=== PATIENT | female | born 1960 | race Two or more races ===

== ENCOUNTER 2025-05-15 10:10 | Emergency (ER) | payer OTHER ==
[~2025-05-15] VITALS: Ht 160 cm; Wt 56.8 kg
--- NOTE | 2025-05-15 10:30 | ED.PDOC ---
HPI Comments 64 y/o F, BIBA, with PMhx of HTN presents to the ED for CC of palpitations. EMS reports, patient is coming from dental office where she received local anesthetic Epinephrin and began to have an adverse reaction. Upon arrival to scene, patient was found to be hyperventilating c/o shortness of breath and palpitations. Patient reports, to have similar symptoms in September 2025, while also receiving dental work then using Lidocaine. Patient denies chest pain, difficulty swallowing, rash, nausea, or vomiting. No other associated symptoms, modifiers, recent injuries or sick contacts present at this time. Time Seen by MD: 10:10 Reviewed Notes: Nurses Notes, Christmas Bell Ringer Notes, Medications, Allergies Allergies: Coded Allergies: Lidocaine (Verified Allergy, Severe, 05/15/25) Information Source: Patient, Emergency Med Personnel Mode of Arrival: EMS Severity: Moderate Timing: Minutes Duration: Since onset Prehospital treatment: None Cardiac Risk Factors: HTN PE Risk Factors: None History of: Similar pain in past Modifying Factors: Nothing Associated Signs and Symptoms: Palpitations Past Medical History PAST MEDICAL HISTORY: HTN Surgical History: Unknown FIELD APPLICATIONS SPECIALIST History: Denies all FIELD APPLICATIONS SPECIALIST Hx Family History Family History: Unknown Social History Smoker: Non-Smoker Alcohol: Denies ETOH Use Drugs: Denies Drug Use Lives In: Home Constitutional: denies: chills, diaphoresis, fatigue, fever, malaise, sweats, weakness, others EENTM: denies: blurred vision, double vision, ear bleeding, ear discharge, ear drainage, ear pain, ear ringing, eye pain, eye redness, hearing loss, mouth pain, mouth swelling, nasal discharge, nose bleeding, nose congestion, nose pain, photophobia, tearing, throat pain, throat swelling, voice changes, others Respiratory: denies: cough, hemoptysis, orthopnea, SOB at rest, shortness of breath, SOB with excertion, stridor, wheezing, others Cardiovascular: reports: palpitations; denies: chest pain, dizzy spells, diaphoresis, Dyspnea on exertion, edema, irregular heart beat, left arm pain, lightheadedness, PND, syncope, others Gastrointestinal: denies: abdomen distended, abdominal pain, blood streaked bowels, constipated, diarrhea, dysphagia, difficulty swallowing, hematemesis, melena, nausea, poor appetite, poor fluid intake, rectal bleeding, rectal pain, vomiting, others Genitourinary: denies: abnormal vagina bleeding, burning, dyspareunia, dysuria, flank pain, frequency, hematuria, incontinence, pain, , vagina discharge, urgency, others Neurological: denies: dizziness, fainting, headache, left sided numbness, left sided weakness, numbness, paresthesia, pre-existing deficit, right sided numbness, right sided weakness, seizure, speech problems, tingling, tremors, weakness, others Musculoskeletal: denies: back pain, gout, joint pain, joint swelling, muscle pain, muscle stiffness, neck pain, others Integumetry: denies: bruises, change in color, change in hair/nails, dryness, laceration, lesions, lumps, rash, wounds, others Allergic/Immunocompromised: denies: Difficulty Healing, Frequent Infections, Hives, Itching, others Hematologic/Lymphatic: denies: anemia, blood clots, easy bleeding, easy bruising, swollen glands, others Endocrine: denies: excessive hunger, excessive sweating, excessive thirst, excessive urination, flushing, intolerance to cold, intolerance to heat, unexplained weight gain, unexplained weight loss, others Psychiatric: denies: anxiety, bipolar disorder, depression, hopeless, panic disorder, schizophrenia, sleepless, suicidal, others All Other Systems: Reviewed and Negative Physical Exam General Appearance: Moderate Distress HEENT: Normal ENT Inspection, Pharynx Normal, TMs Normal Neck: Full Range of Motion, Non-Tender, Normal, Normal Inspection Respiratory: Chest Non-Tender, Lungs Clear, No Accessory Muscle Use, No Respiratory Distress, Normal Breath Sounds Cardiovascular: No Edema, No JVD, No Murmur, No Gallop, Normal Peripheral Pulses, Regular Rate/Rhythm Breast Exam: Deferred Gastrointestinal: No Organomegaly, Non Tender, No Pulsatile Mass, Normal Bowel Sounds, Soft Genitalia: Deferred Pelvic: Deferred Rectal: Deferred Extremities: No calf tenderness, Normal capillary refill, Normal inspection, Normal range of motion, Non-tender, No pedal edema Musculoskeletal : Apperance: Normal Neurologic: Alert, diagrammer and seamer II-XII nml as Tested, No Motor Deficits, Normal Affect, Normal Mood, No Sensory Deficits Cerebellar Function: Normal Reflexes: Normal Skin: Dry, Normal Color, Warm Peripheral Pulses: 3+ Radial (R), 3+ Radial (L) Lymphatic: No Adenopathy EKG EKG : Pulse Rate (adult): 73 [place]: Normal Cardiac Rhythm: Afib Block: None Hypertrophy: None ST: Normal Was a procedure done? Was a procedure done?: No CP Differential Dx Differential Diagnosis: A-fib, A-Flutter, Angina, Anxiety / Panic Attack, Atrial Dysrhythmia, Electrolyte Disorder, Sinus Tachycardia, Other (allergic reaction) Differential Diagnosis: HTN Essential, HTN Accelerated X-Ray, Labs, Meds, VS Vital Signs Date Time Temp Pulse Resp B/P (MAP) Pulse Ox O2 Delivery O2 Flow Rate FiO2 05/15/25 11:28 Room Air* 0 21 05/15/25 11:27 97.8 63 12 135/83 (100) 98 97.8 05/15/25 10:59 99.2 74 22 168/84 97 99.2 05/15/25 10:30 73 05/15/25 10:19 73 Current Medications Medications (Trade) Dose Ordered Sig/Adam Route Start Time Stop Time Status Last Admin Lorazepam (Ativan Inj) 1 mg ONCE ONCE IV 05/15/25 10:30 05/15/25 10:31 DC 05/15/25 10:49 Sodium Chloride 1,000 ml @ 1,000 mls/hr Q1H ONCE IV 05/15/25 10:30 05/15/25 11:29 DC 05/15/25 10:49 Methylprednisolone Sodium Succinate (Solu Medrol) 125 mg ONCE ONCE IV 05/15/25 10:30 05/15/25 10:31 DC 05/15/25 10:49 Patient alert. Came in it shaking. Vitals stable. Answering questions. Was given Ativan. Establish intravenous access. Was given fluids pain Was given steroid. EKG reviewed does not show any acute changes. States that she is feeling much better. Was told to follow up with her primary care physician. Was told to come back if there is any problem. Time of 1ST Reevaluation: 10:40 Reevaluation 1ST: Unchanged Patient Education/Counseling: Diagnosis, Treatment Family Education/Counseling: No Family Present SEPSIS Sepsis Screen Physician Orders Troponin-I Hs (05/15/25 10:21) Complete Blood Count (05/15/25 10:21) Urinalysis (05/15/25 10:21) Basic Metabolic Panel (05/15/25 10:21) Vital Signs Date Time Temp Pulse Resp B/P (MAP) Pulse Ox O2 Delivery O2 Flow Rate FiO2 05/15/25 11:28 Room Air* 0 21 05/15/25 11:27 97.8 63 12 135/83 (100) 98 97.8 05/15/25 10:59 99.2 74 22 168/84 97 99.2 05/15/25 10:30 73 05/15/25 10:19 73 Medications Medications Dose Ordered Sig/Adam Route Start Time Stop Time Status Last Admin Dose Admin Lorazepam 1 mg ONCE ONCE IV 05/15/25 10:30 05/15/25 10:31 DC 05/15/25 10:49 Methylprednisolone Sodium Succinate 125 mg ONCE ONCE IV 05/15/25 10:30 05/15/25 10:31 DC 05/15/25 10:49 Sodium Chloride 1,000 ml @ 1,000 mls/hr Q1H ONCE IV 05/15/25 10:30 05/15/25 11:29 DC 05/15/25 10:49 Departure 1 Departure Time of Disposition: 12:47 Impression: Primary Impression: Anxiety reaction Disposition: 01 HOME / SELF CARE / HOMELESS Condition: Good Discharged With: Self Critical Care Note Critical Care Time?: No Stability Stability form required: No Heart Score Heart Score: Heart Score Response (Comments) Value History N/A 0 EKG N/A 0 Age N/A 0 Risk Factors N/A 0 Troponin N/A 0 Total 0 I personally scribed for AMIRA CASSIDY MD ([email or web address]) on 05/15/25 at 10:30. Electronically submitted by Yanet Bullock ([email or web address]). AMIRA CASSIDY MD May 15, 2025 10:30
--- NOTE | 2025-05-15 10:30 | ECG ---
[facility] Test Date: 2025-05-15 Test Time: 10:19:23 Pat Name: Anyi Roy Department: ED Room: Gender: F Spinning Machine Operator: VIJAY : 1960 Requested By: AMIRA CASSIDY Order Number: [id number] Reading MD: Measurements Intervals [place] Rate: 73 P: 0 MN: 0 QRS: 70 QRSD: 86 T: 34 QT: 405 QTc: 447 Interpretive Statements Atrial flutter with predominant 4:[address] depression, diffuse leads Please click the below link to view image of tracing.
[2025-05-15] MEDS: LORazepam 2MG/ML-1ML VIAL IV ONE (10:49)
[2025-05-15] MEDS: methylPREDNISolone SOD SUCC 125 MG/2 ML VL IV ONE (10:49)
[2025-05-15] MEDS: SODIUM CHLORIDE 0.9% 1,000 ML IV ONE (10:49)
[2025-05-15 11:27] VITALS: BP 135/83; PULSE 63; RESP 12; TEMP 97.8; O2SAT 98
[2025-05-15 13:50] LABS: Hematocrit 42.4 % (36.0-46.0); Hemoglobin 14.8 g/dL (12.2-16.2); Mean Corpuscular Hemoglobin 31.2 pg (28.0-32.0); Mean Corpuscular Volume 89.3 fL (80.0-100.0); Nucleated Red Blood Cells % 0.2 %; Potassium 4.1 mmol/L (3.5-5.1); Sodium 143 mmol/L (136-145)
[2025-05-15 13:51] LABS: Anion Gap 9 (5-15); Calcium 9.4 mg/dL (8.7-10.4); Carbon Dioxide 24 mmol/L (20-31)
[2025-05-15 13:54] LABS: Chloride 110 mmol/L (98-107)
[2025-05-15 13:56] LABS: BUN/Creatinine Ratio 18.2 (10.0-20.0); Blood Urea Nitrogen 12 mg/dL (9-23)
[2025-05-15 13:57] LABS: Glucose 108 mg/dL (74-106)
== END 2025-05-15 13:20 | disposition home or self-care (01) ==
LOC: EDBD 10:10 → ER 10:10
DX: F41.1 Generalized anxiety disorder (principal); I10 Essential (primary) hypertension
CPT/HCPCS: 36415; 80048; 84484; 85025; 93005; 96361; 96374; 96375; 99284; J2060; J2919; J7030

== ENCOUNTER 2025-09-17 06:08 | Inpatient (IN) | payer OTHER ==
[~2025-09-17] VITALS: Ht 160 cm; Wt 62.6 kg
[~2025-09-17 06:08] MED LIST: ADAL40IN2 SC; ALEN35TA18 PO; AMLO1TAB21 PO; ATOR10TA PO; CYCL0.05 OP; GABA-1250 PO; IPRA0.03; TACR0.1O7 EX
[2025-09-17] MEDS ORDERED: ceFAZolin 1GM VL ONE (06:35)
[2025-09-17] MEDS ORDERED: BUPIVACAINE 0.25% INJ 50ML VIAL ONE (06:38)
[2025-09-17] MEDS ORDERED: BUPIVACAINE HCL 50 ML ONE (06:38)
[2025-09-17] MEDS ORDERED: KETOROLAC TROMETH 30 MG/ML 1ML VIAL ONE (06:48)
[2025-09-17] MEDS ORDERED: GLYCOPYRROLATE 0.2 MG/ML 1ML VIAL ONE (06:48)
[2025-09-17] MEDS ORDERED: PROPOFOL 10 MG/ML 20 ML IV ONE (06:48)
[2025-09-17] MEDS ORDERED: LIDOCAINE 1% INJ PF 5ML AMP ONE (06:48)
[2025-09-17] MEDS ORDERED: ONDANSETRON HCL 4 MG/2 ML VIAL ONE (06:48)
[2025-09-17] MEDS ORDERED: KETAMINE 50mg/ML 1ml syringe ONE (06:50)
[2025-09-17] MEDS ORDERED: ACETAMINOPHEN IV 100 ML IV ONE (06:55)
[2025-09-17] MEDS ORDERED: CELECOXIB 100 MG CAP ONE (06:55)
[2025-09-17] MEDS ORDERED: PREGABALIN CAPSULE 75 MG CAP ONE (06:56)
[2025-09-17] MEDS: PREGABALIN CAPSULE 75 MG CAP PO ONE (07:10)
[2025-09-17] MEDS: CELECOXIB 100 MG CAP PO ONE (07:10)
[2025-09-17] MEDS: ACETAMINOPHEN IV 1000 MG/100ML (10MG/ML) IV ONE (07:10)
[2025-09-17] MEDS ORDERED: BUPIVACAINE/DEXTROSE MPF 0.75% 2 ML AMP IT ONE (07:11)
[2025-09-17] MEDS: ceFAZolin 2 GM/D5W50ml 50 ML IV ONE (07:23)
[2025-09-17] MEDS: CEFEPIME 1GM/50ML 50 ML IV ONE (07:30)
[2025-09-17] MEDS: TRANEXAMIC ACID 20 ML ONE (07:35)
[2025-09-17] MEDS ORDERED: SODIUM CHLORIDE LOCK 10 ML ONE (07:50)
[2025-09-17] MEDS ORDERED: PHENYLEPHRINE HCL 10 MG/ML VL ONE (07:50)
[2025-09-17] MEDS: BUPIVACAINE 0.25% INJ 50ML VIAL ONE (08:04)
[2025-09-17] MEDS: MORPHINE SULF PF 5 MG/10 ML VIAL ONE (08:05)
[2025-09-17] MEDS: KETOROLAC TROMETH 30 MG/ML 1ML VIAL ONE (08:05)
[2025-09-17] MEDS: VANCOMYCIN HCL 1000 MG VL ONE (08:06)
[2025-09-17] MEDS ORDERED: GABAPENTIN 300 MG CAP PO SCH (08:45)
[2025-09-17] MEDS ORDERED: NITROGLYCERIN 0.4 MG SL TAB SL PRN (08:45)
[2025-09-17] MEDS: LACTATED RINGER'S 1,000 ML IV SCH (08:45)
[2025-09-17] MEDS: ceFAZolin 1GM/50ML 50 ML IV SCH (08:45)
[2025-09-17] MEDS ORDERED: HYDROmorphone HCL 2 MG/ML VL/or syr IV PRN (08:45)
[2025-09-17] MEDS ORDERED: MORPHINE SULFATE INJ 2 MG/ml SYRG IV PRN (08:45)
--- NOTE | 2025-09-17 08:58 | DVHOP2 ---
Operative Report - 2 Report Details Date: 09/17/25 Preop Diagnosis: Left Hip Dysplasia, DJD Postop Diagnosis: Same Surgeon: Jac Douglas MD Anesthesiologist: Gallo NICKERSON Anesthesia: Mac, Regional Consent: The patient was informed of the risks and benefits of the procedure. These include but are not limited to complications of anesthesia, postoperative infection, incomplete relief of symptoms, recurrence of symptoms, damage to blood vessels, nerves and tendons, deep venous thrombosis, pulmonary embolism and possible need for repeat surgery in the future. Findings: End stage DJD, labral tear, dysplasia, Quadriceps contracture Name of Procedure Performed Complex Left Total Hip Arthroplasty Procedure Details Procedure Details: The patient was positioned in the lateral decubitus position with appropriate padding. The operative site was prepped and draped in the standard sterile fashion. A posterior approach was utilized. A skin incision was made posterior to the greater trochanter. Dissection was carried through subcutaneous tissue, and the fascia of the gluteus vj was split in line with its fibers. The short e xternal rotators were identified and released, and the hip was dislocated posteriorly. The femoral neck osteotomy was performed, and the femoral head was removed. Attention was then directed to the acetabulum. Acetabular retractors were placed for exposure. The labrum and pulvinar were excised. Sequential reaming was performed to the appropriate size. Due to anterosuperior bone uncoverage, a Jb G7 multihole cup was selected and secured with 4 screws for optimal fixation. A dual mobility liner was inserted and tested for stability. The femur was then prepared. The canal was sequentially reamed and broached. A Jb Z1 stem was selected and implanted. A -3.5 mm femoral head was placed. The hip was reduced and stability confirmed. The wound was irrigated with pulsatile lavage and a dilute betadine solution, 1gm vancomycin powder was placed Local anesthetic cocktail was injected into the soft tissues. The capsule and short external rotators were repaired with #5 FiberWire. The fascia was closed with #1 absorbable suture, and the subcutaneous tissue with 2-0 absorbable suture. Skin was closed with reema. A sterile dressing was applied, and an abduction pillow was placed. The patient was transferred to the recovery room in stable condition. Instrument Count: Correct Surgeon Presence: I was present for the entire procedure. Condition Good Disposition Home JAC DOUGLAS DO Sep 17, 2025 08:58
[2025-09-17 09:23] VITALS: PULSE 82; RESP 13; O2SAT 100
[2025-09-17] MEDS ORDERED: NALOXONE HCL 0.4 MG/ML VIAL IV PRN (09:30)
[2025-09-17] MEDS ORDERED: FLUMAZENIL 0.1 MG/ML INJ 10ML MDV IV PRN (09:30)
[2025-09-17] MEDS ORDERED: ONDANSETRON HCL 4 MG/2 ML VIAL IV PRN (09:30)
[2025-09-17] MEDS ORDERED: fentaNYL CITRATE 100 MCG/2 ML VL IV PRN (09:30)
[2025-09-17] MEDS ORDERED: hydrALAZINE HCL 20 MG/ML VL IV PRN (09:30)
[2025-09-17] MEDS: HYDROmorphone HCL 2 MG/ML VL/or syr IV PRN (09:42)
[2025-09-17] MEDS: ENOXAPARIN SOD 40 MG/0.4 ML SYRINGE SC SCH (10:00)
[2025-09-17] MEDS: CEFEPIME 1GM/50ML 50 ML IV SCH (10:00)
[2025-09-17] MEDS ORDERED: PATIENTS OWN MEDICATION (Amlodipine Besylate 2.5 MG) PO SCH (10:00)
[2025-09-17] MEDS: DOCUSATE SOD 100 MG CAP PO SCH (10:00)
[2025-09-17] MEDS ORDERED: PATIENTS OWN MEDICATION (Atorvastatin Calcium (Lipitor) 10 MG) PO SCH (10:00)
--- NOTE | 2025-09-17 11:07 | DVH ---
EXAM: XY PELVIS AP CLINICAL INDICATION: sp Left NIDIA TECHNIQUE: XY PELVIS AP Comparison: CT HIP LEFT WO on DOS: 05/30/25, XR HIP LEFT 2-3 VIEW on DOS: 04/10/25, DX BONE DENSITY (DXA) SPINE/HIP W VFA on DOS: 11/21/24 FINDINGS/IMPRESSION: There is no evidence of acute fracture or dislocation. Left total hip arthroplasty. Expected postsurgical changes. Moderate right hip osteoarthritis
[2025-09-17 11:31] VITALS: BP 116/70; PULSE 79; RESP 20; TEMP 98; O2SAT 0; O2SAT 97
[2025-09-17] MEDS: HYDROcodone-ACET 5/325MG TAB PO PRN (12:45)
[2025-09-17] MEDS: ONDANSETRON HCL 4 MG/2 ML VIAL IV PRN (12:45)
[2025-09-17] MEDS: SODIUM CHLOR 0.9% PF (SALINE LOCK) 10ML VIAL/SYR IV SCH (14:00)
--- NOTE | 2025-09-17 15:16 | DVHINCON2 ---
Date Seen: Sep 17, 2025 Referring Physician Orthopedic surgeon. Reason for Consultation Medical management. History of Present Illness 65-year-old female with a known history of hypertension, dyslipidemia, rheumatoid arthritis currently on Humira injection every 14 days, exploratory laparotomy with a some kind of interested in surgery in the past, thyroid surgery presented to the hospital for elective procedure for left total hip. Patient does have known history of end-stage degenerative joint disease of the left hip. Patient is status post total left hip arthroplasty postop day 0. Patient is currently complaining of minimal pain. Past Medical History Hypertension Dyslipidemia Rheumatoid arthritis Past Surgical History Previous history of some exploratory laparotomy with the intestinal surgery, thyroid surgery, -status post left total hip arthroplasty now. Allergies: Coded Allergies: Lidocaine (Verified Allergy, Severe, 05/15/25) Epinephrine (Unverified Adverse Reaction, Severe, SOB, angina, 09/14/25) Home Meds Reported Medications Tacrolimus (Tacrolimus) 0.1 % Oin, 0.1 % EX, OIN 09/14/25 Ipratropium [place] (Ipratropium [place]) 0.03 % Spr, 0.03 % NA, SPRAY 09/14/25 Cyclosporine (Ophth) (Restasis) 0.05 % Emu, 0.05 % OP, EA 09/14/25 Adalimumab (Humira Pen) 40 Mg/0.4 Ml Inj, 40 MG SC Q14D, INJ 09/14/25 Gabapentin (Gabapentin) 300 Mg Cap, 300 MG PO PRN, CAP 09/14/25 Amlodipine Besylate (Amlodipine Besylate) 2.5 Mg Tab, 2.5 MG PO DAILY, TAB 09/14/25 Atorvastatin Calcium (Lipitor) 10 Mg Tab, 10 MG PO DAILY, TAB 09/14/25 Alendronate Sodium (Alendronate Sodium) 35 Mg Tab, 35 MG PO Q7D, TAB 09/14/25 Current Medications Current Medications Medications (Trade) Dose Ordered Sig/Adam Route PRN Reason Start Time Stop Time Status Last Admin Gabapentin (Neurontin Capsule) 300 mg PRN PO 09/17/25 08:45 Patient Own Medication 2.5 mg DAILY PO 09/17/25 10:00 UNV Patient Own Medication 10 mg DAILY PO 09/17/25 10:00 UNV Cefepime HCl 50 ml @ 12.5 mls/hr DAILY IV 09/17/25 10:00 Lactated Ringer's 1,000 ml @ 100 mls/hr Q10H IV 09/17/25 08:45 Sodium Chloride (Saline Lock Ns) 10 ml Q8HR IV 09/17/25 14:00 Cefazolin Sodium 50 ml @ 50 mls/hr Q6H IV 09/17/25 08:45 09/17/25 21:44 09/17/25 13:11 Acetaminophen/ Hydrocodone Bitart ([place] 5/325MG Tab) 1 tab Q4HP PRN PO MODERATE PAIN (4-6 PAIN SCALE) 09/17/25 08:45 09/17/25 12:45 Hydromorphone HCl (Dilaudid Injection) 1 mg Q2HP PRN IV SEVERE PAIN (7-10 PAIN SCALE) 09/17/25 08:45 Ondansetron HCl (Zofran) 4 mg Q6HP PRN IV NAUSEA / VOMITING 09/17/25 08:45 09/17/25 12:45 Docusate Sodium (Colace Capsule) 100 mg Q12HR PO 09/17/25 10:00 Enoxaparin Sodium (Lovenox) 40 mg DAILY SC 09/17/25 10:00 Nitroglycerin (Ntrostat Sublingual) 0.4 mg Q5MINP PRN SL FOR CHEST PAIN 09/17/25 08:45 Morphine Sulfate 2 mg Q30M PRN IV FOR CHEST PAIN 09/17/25 08:45 Amlodipine Besylate (Norvasc Tablet) 2.5 mg DAILY PO 09/17/25 10:00 Atorvastatin Calcium (Lipitor) 10 mg HS PO 09/17/25 22:00 Ondansetron HCl (Zofran) 4 mg ONCE PRN IV NAUSEA / VOMITING 09/17/25 09:30 09/17/25 09:32 DC Naloxone HCl (Narcan) 0.4 mg Q10M PRN IV NARCOTIC REVERSAL 09/17/25 09:30 09/17/25 09:51 DC Flumazenil (Romazicon Injection) 0.2 mg ONCE PRN IV BENZODIAZEPINE REVERSAL 09/17/25 09:30 09/17/25 09:32 DC Hydralazine HCl (Apresoline Injection) 5 mg Q10M PRN IV SBP>160 09/17/25 09:30 09/17/25 10:21 DC Ephedrine Sulfate (ePHEDrine SULFATE) 10 mg Q10M PRN IV SBP LESS THAN 90 09/17/25 09:30 09/17/25 10:11 DC Fentanyl Citrate 25 mcg Q1HP PRN IV BREAKTHROUGH PAIN (7-10) 09/17/25 09:30 09/17/25 09:32 DC Hydromorphone HCl (Dilaudid Injection) 0.5 mg Q10M PRN IV SEVERE PAIN (7-10 PAIN SCALE) 09/17/25 09:30 09/17/25 10:11 DC 09/17/25 09:55 Oxycodone HCl 10 mg ONCE PRN PO MODERATE PAIN (4-6 PAIN SCALE) 09/17/25 09:30 Review of Systems Twelve review of system are negative besides mentioned above. Vital Signs Vital Signs Date Time Temp Pulse Resp B/P (MAP) Pulse Ox O2 Delivery O2 Flow Rate FiO2 09/17/25 11:31 98.0 79 20 116/70 (85) 97 98.0 09/17/25 11:31 Room Air* 0 21 Physical Exam HEENT pupils are reactive Neck is supple CV is S1-S2 regular rate and rhythm Respiratory diminished breath sounds bases GI positive bowel sound Extremity no edema COURT SPECIALIST no motor deficit Assessment 65-year-old female with a known history of hypertension, dyslipidemia, rheumatoid arthritis is here for elective procedure for end-stage degenerative joint disease of the left hip. 1. Hypertension controlled 2. Dyslipidemia 3. Rheumatoid arthritis 4. Degenerative joint disease of the left hip status post left total hip arthroplasty postop day 0. -continue DVT prophylaxis GI prophylaxis, pain meds as needed, physical therapy evaluation and treatment, discharge plan once Orthopedics clear. Plan discussed with: Patient Date of Service: Sep 17, 2025 Billing Provider: CHAYA ELDER MD Common Visit Codes: NOT BILLABLE CHAYA ELDER MD Sep 17, 2025 15:16
[2025-09-17 17:00] VITALS: BP 133/78; PULSE 77; RESP 16; TEMP 97.8; O2SAT 98
[2025-09-17 20:00] VITALS: PULSE 68; RESP 16; O2SAT 96
[2025-09-17 21:00] VITALS: BP 130/75; PULSE 70; RESP 17; TEMP 98.5; O2SAT 96
[2025-09-17] MEDS: ATORVASTATIN 20 MG TAB PO SCH (22:06)
[2025-09-18 01:00] VITALS: BP 115/65; PULSE 70; RESP 17; TEMP 97.7; O2SAT 97
[2025-09-18 05:00] VITALS: BP 104/65; PULSE 66; RESP 17; TEMP 98.4; O2SAT 97
[2025-09-18 05:43] LABS: Hematocrit 31.5 % (36.0-46.0); Hemoglobin 10.6 g/dL (12.2-16.2)
[2025-09-18 06:00] LABS: Alanine Aminotransferase 29 U/L (7-40); Albumin 3.6 g/dL (3.2-4.8); Alkaline Phosphatase 53 U/L (46-116); Anion Gap 6 (5-15); BUN/Creatinine Ratio 15.1 (10.0-20.0); Calcium 9.1 mg/dL (8.7-10.4); Carbon Dioxide 28 mmol/L (20-31); Potassium 4.1 mmol/L (3.5-5.1); Sodium 143 mmol/L (136-145); Total Protein 5.8 g/dL (5.7-8.2)
[2025-09-18 06:01] LABS: Bilirubin, Total 0.6 mg/dL (0.2-1.0); Blood Urea Nitrogen 8 mg/dL (9-23); Chloride 109 mmol/L (98-107); Glucose 120 mg/dL (74-106)
[2025-09-18 08:00] VITALS: PULSE 87; RESP 17; O2SAT 96
[2025-09-18 09:00] VITALS: BP 116/61; PULSE 87; RESP 17; TEMP 97.4; O2SAT 96
--- NOTE | 2025-09-18 12:39 | DVHDS2 ---
Discharge Summary Date of Admission Sep 17, 2025 at 08:40 Date of Discharge: Sep 18, 2025 Admitting Diagnosis hip osteoarthritis Labs/Diagnostic Data: Laboratory Results Test 09/18/25 04:47 Hemoglobin 10.6 g/dL (12.2-16.2) Hematocrit 31.5 % (36.0-46.0) Sodium Level 143 mmol/L (136-145) Potassium Level 4.1 mmol/L (3.5-5.1) Chloride Level 109 mmol/L (98-107) Carbon Dioxide Level 28 mmol/L (20-31) Anion Gap 6 (5-15) Blood Urea Nitrogen 8 mg/dL (9-23) Creatinine 0.53 mg/dL (0.550-1.02) Glomerular Filtration Rate Calc 103 mL/min (>90) BUN/Creatinine Ratio 15.1 (10.0-20.0) Serum Glucose 120 mg/dL (74-106) Calcium Level 9.1 mg/dL (8.7-10.4) Total Bilirubin 0.6 mg/dL (0.2-1.0) Aspartate Amino Transferase (AST) 49 U/L (13-40) Alanine Aminotransferase (ALT) 29 U/L (7-40) Alkaline Phosphatase 53 U/L (46-116) Total Protein 5.8 g/dL (5.7-8.2) Albumin 3.6 g/dL (3.2-4.8) Other Laboratory Tests 09/18/25 04:47 Brief Hx & Hospital Course: s/p total hip arthroplasty Condition at Discharge: Good Final Diagnosis/Problems List Same Discharge Disposition: Home Discharge Instruct/Medications Diet: Regular Diet comment: can advance diet as tolerated Activity: See Comment Activity comment: 1.You can bear as much weight as you tolerate on your hip unless specifically instructed otherwise. You may use the walking aid which you were discharged with and switch to a cane whenever you feel comfortable doing so. You should use an assistive device until you can walk comfortably without it. Keep in mind that every patient moves at their own speed of recovery so take your time. 2.A physical therapist will visit you at home. 3. Although guarantees against a dislocation do not exist, the hip was noted to be sufficiently stable in surgery. Below are motions that you should dischargenot do for 4-6 weeks, depending on the surgical approach used. If there are questions, please call the office. a.Bend forward past 90 degrees b.Sit on a regular low chair, couch, car seat etc... c.Cross your legs d.Use a regular low toilet seat. e.Sleep on your stomach or on either side. 3.High impact activity such as jumping, aerobics, tennis, and skiing are not permitted during the first 3 months after surgery. These activities can contribute to accelerated wear and should be done with caution after this time. Discuss this with your surgeon if you have questions. 4.Although a bath or whirlpool is NOT permitted during the first 2-3 weeks, you may shower as soon as you get home from the hospital provided you are able to keep your bandage clean and dry and there is no wound drainage. If you are unable to place a secured covering over your bandage bed bath/sponge bath may likely be the more appropriate option. 5.Swimming is not permitted until the wound is healed, which typically occurs approximately 3-4 weeks after surgery. Follow Up/Referral: 1.Driving is not permitted within the first 2 weeks. 2.Your first postoperative visit will take place 2weeks after discharge. Please call the office to arrange this appointment. 3.Antibiotic preventative treatment is required before dental or other invasive procedures. Please ask your surgeon about this at your first postoperative visit. Your hip replacement contains metal which may activate metal detectors. You may wish to carry a letter from your surgeon to communicate this to security personnel. If you experience chest pain, shortness of breath or severe painful calf swelling, go to the nearest emergency room to be evaluated. Please call our office once your situation is stabilized. Medications: 1.You will be discharged with pain medication, Aspirin as a blood thinner and sometimes an anti-inflammatory medication such as Celebrex or Mobic might be prescribed. Please follow the instructions regarding these medicines as provided by your nurse at the hospital. 2.Narcotic pain medication has side effects, including constipation. Please ensure you continue to take stool softeners (Colace, Senna) while taking your pain medication to help protect against constipation. Getting up and moving around at least a few times per day helps with this also. 3.Lovenox 40 Sq x 12 days followed by one regular strength 325 mg coated aspirin daily for 4 weeks after surgery. Then, take one baby aspirin, 81 mg daily for 6 weeks more. A major, yet preventable, complication of Orthopaedic Surgery is a blood clot (DVT). It is important not to miss any doses of this important medication. 4.You should restart all of your prescription medications once discharged unless specifically instructed otherwise. 5.Herbal supplements may be restarted 2 weeks after surgery. Scheduled Adalimumab (Humira Pen), 40 MG SC Q14D, (Reported) Alendronate Sodium (Alendronate Sodium), 35 MG PO Q7D, (Reported) Amlodipine Besylate (Amlodipine Besylate), 2.5 MG PO DAILY, (Reported) Atorvastatin Calcium (Lipitor), 10 MG PO DAILY, (Reported) Gabapentin (Gabapentin), 300 MG PO PRN, (Reported) Miscellaneous Medications Cyclosporine (Ophth) (Restasis), 0.05 % OP, (Reported) Ipratropium [place] (Ipratropium [place]), 0.03 % NA, (Reported) Tacrolimus (Tacrolimus), 0.1 % EX, (Reported) Discharge Statement: "Patient was advised to return to the ER or call 911 if any headaches, dizziness, shortness of breath, chest pain, abdominal pain, bleeding, fevers, or worsening of medical condition. Patient was counseled about treatment plan, medications, possible side effects, patientverbalized understanding. All questions were answered to the best of my ability. This discharge took greater then 30 minutes in planning, reviewing documentation, counseling the patient, and discussing with other team members." ASSESSMENT ASSESSMENT Assessment Same WIN BUCKNER NP Sep 18, 2025 12:39
[2025-09-18 13:55] LABS: Hematocrit 31.9 % (36.0-46.0); Hemoglobin 10.6 g/dL (12.2-16.2); Mean Corpuscular Hemoglobin 30.8 pg (28.0-32.0); Mean Corpuscular Volume 92.3 fL (80.0-100.0); Nucleated Red Blood Cells % 0.0 %
--- NOTE | 2025-09-18 15:27 | DVHPN2 ---
Subjective Overnight events noted. Patient is currently has a discharge orders as per Orthopedics. Changes from previous H/P or p: No Changes Objective Vitals Vital Signs Date Time Temp Pulse Resp B/P (MAP) Pulse Ox O2 Delivery O2 Flow Rate FiO2 09/18/25 09:23 116/61 09/18/25 09:00 97.4 87 17 96 97.4 09/18/25 08:00 Room Air* 0 21 Intake/Output Intake and Output 09/18/25 07:00 Intake Total 995 ml Balance 995 ml Intake Oral 875 ml IV Total 120 ml # Voids 8 # Bowel Movements 1 Medications Current Medications Medications Dose Ordered Sig/Adam Route Start Time Stop Time Status Last Admin Dose Admin Gabapentin 300 mg PRN PO 09/17/25 08:45 Patient Own Medication 2.5 mg DAILY PO 09/17/25 10:00 UNV Patient Own Medication 10 mg DAILY PO 09/17/25 10:00 UNV Cefepime HCl 50 ml @ 12.5 mls/hr DAILY IV 09/17/25 10:00 09/18/25 09:23 12.5 MLS/HR Lactated Ringer's 1,000 ml @ 100 mls/hr Q10H IV 09/17/25 08:45 09/18/25 00:53 100 MLS/HR Sodium Chloride 10 ml Q8HR IV 09/17/25 14:00 09/18/25 14:00 10 ML Acetaminophen/ Hydrocodone Bitart 1 tab Q4HP PRN PO 09/17/25 08:45 09/18/25 09:15 1 TAB Hydromorphone HCl 1 mg Q2HP PRN IV 09/17/25 08:45 Ondansetron HCl 4 mg Q6HP PRN IV 09/17/25 08:45 09/17/25 19:07 4 MG Docusate Sodium 100 mg Q12HR PO 09/17/25 10:00 09/18/25 09:23 100 MG Enoxaparin Sodium 40 mg DAILY SC 09/17/25 10:00 Nitroglycerin 0.4 mg Q5MINP PRN SL 09/17/25 08:45 Morphine Sulfate 2 mg Q30M PRN IV 09/17/25 08:45 Amlodipine Besylate 2.5 mg DAILY PO 09/17/25 10:00 09/18/25 09:23 2.5 MG Atorvastatin Calcium 10 mg HS PO 09/17/25 22:00 09/17/25 22:06 10 MG Oxycodone HCl 10 mg ONCE PRN PO 09/17/25 09:30 Laboratory Results Laboratory Tests 09/18/25 04:47 09/18/25 13:03 Chemistry Test 09/18/25 04:47 Albumin 3.6 g/dL (3.2-4.8) Calcium Level 9.1 mg/dL (8.7-10.4) Total Protein 5.8 g/dL (5.7-8.2) LFT Test 09/18/25 04:47 Alanine Aminotransferase (ALT) 29 U/L (7-40) Alkaline Phosphatase 53 U/L (46-116) Aspartate Amino Transferase (AST) 49 U/L (13-40) H Total Bilirubin 0.6 mg/dL (0.2-1.0) Assessment/Plan Assessment/Plan 65-year-old female with a known history of hypertension, dyslipidemia, rheumatoid arthritis is here for elective procedure for end-stage degenerative joint disease of the left hip. 1. Hypertension controlled 2. Dyslipidemia 3. Rheumatoid arthritis 4. Degenerative joint disease of the left hip status post left total hip arthroplasty postop day 1 -continue DVT GI prophylaxis, physical therapy evaluation and treatment, discharge plan today per Orthopedics.. Plan discussed with: Patient Date of Service: Sep 18, 2025 Billing Provider: CHAYA ELDER MD Common Visit Codes: NOT BILLABLE CHAYA ELDER MD Sep 18, 2025 15:27
== END 2025-09-18 16:15 | disposition home or self-care (01) | DRG 470 ==
LOC: SUR 06:08 → OVERFLOW 08:40 → WEST WING 10:34
PROVIDERS: ADMIT Orthopaedic Surgery Adult Reconstructive Orthopaedic Surgery; ATTEND Orthopaedic Surgery Adult Reconstructive Orthopaedic Surgery
PROC: 0SRB02A Replacement of Left Hip Joint with Metal on Polyethylene Synthetic Substitute, Uncemented, Open Approach (ICD-10-PCS; principal; 2025-09-17 07:23)
DX: M16.12 Unilateral primary osteoarthritis, left hip (principal); E78.5 Hyperlipidemia, unspecified; M06.9 Rheumatoid arthritis, unspecified; I10 Essential (primary) hypertension; Q65.89 Other specified congenital deformities of hip; Z79.899 Other long term (current) drug therapy
CPT/HCPCS: 36415; 72170; 80053; 85014; 85018; 85025; 86850; 86900; 86901; 97116; 97163; 97530; A4565; G0378; J0131; J0169; J0690; J1100; J1885; J2405; J2704; J3490